=== PATIENT | male | born 1965 | race Caucasian/White ===

== ENCOUNTER → 2016-12-21 | Outpatient (REF) | payer OTHER | LOC: M LAB REF 18:21 | PROVIDERS: ATTEND Physician Assistant Medical | DX: J02.9 Acute pharyngitis, unspecified (principal) ==

== ENCOUNTER → 2018-12-11 | Outpatient (REF) | payer OTHER | LOC: M LAB REF 10:03 | PROVIDERS: ATTEND Physician Assistant | DX: J02.9 Acute pharyngitis, unspecified (principal) ==

== ENCOUNTER → 2020-02-01 | Outpatient (REF) | payer OTHER | LOC: EEVIPCON 13:56 → M LAB REF 13:56 | PROVIDERS: ATTEND Nurse Practitioner Family | DX: L08.9 Local infection of the skin and subcutaneous tissue, unspecified (principal); R21 Rash and other nonspecific skin eruption ==

== ENCOUNTER 2021-07-27 12:08 | Emergency (ER) | payer OTHER ==
[~2021-07-27] VITALS: Ht 188 cm; Wt 186.4 kg
[2021-07-27] MEDS ORDERED: VALA500T5 (12:15)
[2021-07-27] MEDS ORDERED: NS 1,000 ML IV SCH (12:55)
[2021-07-27 13:31] LABS: BASO % 0.3 % (0.0-1.0); EOS % 0.2 % (0.0-3.0); HEMATOCRIT 38.9 % (42.0-52.0); HEMOGLOBIN 12.8 g/dl (13.5-17.5); LYMPH # 1.5 10^3/uL (1.5-5.0); LYMPH % 10.1 % (24.0-44.0); MEAN CORPUSCULAR HEMOGLOBIN 30.5 pg (27.0-33.0); MEAN CORPUSCULAR HGB CONC 32.9 g/dl (32.0-36.5); MEAN CORPUSCULAR VOLUME 92.8 fl (80.0-96.0); MONO # 1.4 10^3/uL (0.0-0.8); NEUTROPHILS % 80.1 % (36.0-66.0); PLATELET COUNT, AUTOMATED 260 10^3/uL (150-450); RED BLOOD COUNT 4.19 10^6/uL (4.30-6.10)
[2021-07-27 13:54] LABS: ALBUMIN 3.6 GM/DL (3.2-5.2); BILIRUBIN,DIRECT 0.3 MG/DL (0.0-0.2); BILIRUBIN,TOTAL 1.1 MG/DL (0.2-1.0); CREATININE FOR GFR 1.37 MG/DL (0.70-1.30); GLOMERULAR FILTRATION RATE 57.2 (>56); POTASSIUM SERUM 4.1 MEQ/L (3.5-5.1); TOTAL PROTEIN 7.3 GM/DL (6.4-8.2)
[2021-07-27] MEDS ORDERED: ISOVUE-370 76% 100ML VIAL As Ordered ONE (14:03)
[2021-07-27] MEDS ORDERED: OXYC-778 PO (15:17)
[2021-07-27] MEDS ORDERED: FLOM0.4C39 PO (15:17)
[2021-07-27] MEDS ORDERED: TAMSULOSIN 0.4 MG CAP PO ONE (15:20)
[2021-07-27] MEDS ORDERED: OXYCODONE/APAP 5MG/325MG(BULK FOR ED) 1 TABLET PO ONE (15:20)
[2021-07-27 15:35] VITALS: BP 147/79
== END 2021-07-27 16:10 | disposition home or self-care (01) ==
LOC: M ED 12:08
DX: D64.9 Anemia, unspecified (principal); E80.6 Other disorders of bilirubin metabolism; N20.9 Urinary calculus, unspecified; R93.89 Abnormal findings on diagnostic imaging of other specified body structures; R94.4 Abnormal results of kidney function studies
CPT/HCPCS: 74177; 80048; 80076; 81001; 83690; 85025; 93005; 96360; 96361; 99284; Q9967